=== PATIENT | male | born 1995 | race Two or more races ===

== ENCOUNTER 2018-03-08 01:29 | Emergency (ER) | payer SELFPAY ==
[~2018-03-08] VITALS: Ht 185.4 cm; Wt 70.3 kg
[2018-03-08 01:33] VITALS: BP 127/66
[2018-03-08] MEDS ORDERED: predniSONE 20 MG TABLET ONE (01:51)
[2018-03-08] MEDS ORDERED: diphenhydrAMINE HCL 50 MG/ML VIAL ONE (01:51)
[2018-03-08] MEDS ORDERED: predniSONE 20 MG TABLET PO ONE (02:00)
[2018-03-08] MEDS ORDERED: diphenhydrAMINE HCL 50 MG/ML VIAL IM ONE (02:00)
== END 2018-03-08 02:06 | disposition home or self-care (01) ==
LOC: ER 01:31
DX: L50.9 Urticaria, unspecified (principal); T36.8X5A Adverse effect of other systemic antibiotics, initial encounter; Y92.89 Other specified places as the place of occurrence of the external cause
CPT/HCPCS: J1200